=== PATIENT | female | born 1945 | race Caucasian/White ===

== ENCOUNTER 2017-03-13 07:49 | Day surgery (SDC) | payer OTHER, MEDICARE ==
[~2017-03-13] VITALS: Ht 154.9 cm; Wt 83.2 kg
[~2017-03-13 07:49] MED LIST: CHILD ASPIRIN81 M1 PO; HYZAAR 50-121 TABLET PO; ZOCOR20 MG PO
[2017-03-13 08:27] VITALS: BP 175/82
[2017-03-13 14:00] VITALS: BP 180/88
[2017-03-13 16:13] VITALS: BP 178/79
[2017-03-13 19:19] VITALS: BP 120/60
[2017-03-13 23:09] VITALS: BP 117/70
[2017-03-14 03:50] VITALS: BP 136/61
[2017-03-14 07:45] VITALS: BP 160/68
[2017-03-14] MEDS ORDERED: PREMARIN0.625 MG PO (09:16)
== END 2017-03-14 10:00 | disposition home or self-care (01) ==
LOC: SDC 07:49 → 2EASTP 11:29 → 2SOUTH 11:29 → ENRESERV 11:37 → 2EASTP 14:07 → SDC 14:22 → 2EASTP 03-14 10:00
PROC: 0JQC0ZZ Repair Pelvic Region Subcutaneous Tissue and Fascia, Open Approach (ICD-10-PCS; principal; 2017-03-13)
DX: N81.6 Rectocele (principal); N81.89 Other female genital prolapse; I10 Essential (primary) hypertension; E78.00 Pure hypercholesterolemia, unspecified; I34.1 Nonrheumatic mitral (valve) prolapse; E66.9 Obesity, unspecified; Z68.36 Body mass index [BMI] 36.0-36.9, adult; Z79.82 Long term (current) use of aspirin
CPT/HCPCS: G0378; J0131; J0690; J1100; J2270; J2405; J2710; J2765; J3010; J7120